=== PATIENT | male | born 1985 | race African-American/Black ===

== ENCOUNTER 2020-04-08 17:32 | Emergency (ER) | payer MEDICARE, MEDICAID ==
[~2020-04-08] VITALS: Ht 172.7 cm; Wt 68.0 kg
[2020-04-08 18:02] VITALS: BP 134/87
== END 2020-04-08 20:43 | disposition home or self-care (01) ==
LOC: ER 17:32
DX: J20.9 Acute bronchitis, unspecified (principal); Z20.828 Contact with and (suspected) exposure to other viral communicable diseases
CPT/HCPCS: 36415; 71045; 87426

== ENCOUNTER → 2025-05-10 | Outpatient (CLI) | payer MEDICARE, MEDICAID | END | disposition home or self-care (01) | LOC: LAB 09:45 | PROVIDERS: ATTEND Student in an Organized Health Care Education/Training Program | DX: Z01.812 Encounter for preprocedural laboratory examination (principal); L72.9 Follicular cyst of the skin and subcutaneous tissue, unspecified ==